=== PATIENT | female | born 1960 | race Caucasian/White ===

== ENCOUNTER → 2021-02-21 | Outpatient (CLI) | payer MEDICARE | LOC: COL.RAD 12:56 | DX: Z12.2 Encounter for screening for malignant neoplasm of respiratory organs (principal); F17.210 Nicotine dependence, cigarettes, uncomplicated ==

== ENCOUNTER → 2021-06-07 | Outpatient (CLI) | payer MEDICARE | LOC: MC.RAD 08:45 | DX: Z12.31 Encounter for screening mammogram for malignant neoplasm of breast (principal) ==

== ENCOUNTER 2021-07-22 21:37 | Emergency (ER) | payer MEDICARE ==
[~2021-07-22] VITALS: Ht 172.7 cm; Wt 73.6 kg
[2021-07-22 21:46] VITALS: TEMP 98
[2021-07-22 22:34] LABS: BASO % 0.3 % (0.0-2.0); EOS # 0.2 K/mm3 (0.0-0.7); EOS % 2.3 % (0.0-4.0); GRAN # 3.7 K/mm3 (1.4-6.5); GRAN % 56.8 % (42.2-75.2); HEMOGLOBIN 10.3 g/dl (12.5-16.0); LYMPH # 1.9 K/mm3 (1.2-3.4); LYMPH % 29.6 % (20.0-51.0); MEAN CELL VOLUME 94 fl (80.0-100.0); MEAN CORPUSCULAR HEMOGLOBIN 31 pg (27-31); MEAN CORPUSCULAR HGB CONC 32 g/dl (33.0-37.0); MEAN PLATELET VOLUME 10.2 fl (7.4-10.4); MONO # 0.7 K/mm3 (0.1-0.6); MONO % 10.7 % (1.7-9.3); PLATELET COUNT 219 K/mm3 (130-400); RED BLOOD COUNT 3.38 M/mm3 (4.10-5.30); REDCELL DISTRIBUTION WIDTH-CV 19.6 % (11.5-14.5)
[2021-07-22 22:35] LABS: HEMATOCRIT 31.9 % (37.0-47.0)
[2021-07-22 22:47] LABS: ALBUMIN 3.4 gm/dL (3.4-4.8); BILIRUBIN,TOTAL 0.2 mg/dL (0.2-1.2); CALCIUM 9.1 mg/dL (8.4-10.2); CREATININE, serum 0.95 mg/dL (0.57-1.11); POTASSIUM 3.6 mmol/L (3.5-4.5); TOTAL PROTEIN 6.6 gm/dL (6.2-8.1)
[2021-07-23 00:36] LABS: COLLECTION METHOD CLEAN CATCH
[2021-07-23 00:42] LABS: PH 5 (5-8); SQUAMOUS EPITHELIAL 0-2 /hpf (0-10); URINE APPEARANCE Clear (CLEAR/HAZY); URINE BACTERIA Rare /hpf (NONE SEEN); URINE BILIRUBIN Negative (NEGATIVE); URINE BLOOD Negative (NEGATIVE); URINE COLOR Yellow (YELLOW); URINE GLUCOSE Negative (NEGATIVE); URINE KETONE Negative (NEGATIVE); URINE LEUKOCYTE ESTERASE Negative (NEGATIVE); URINE NITRATE Negative (NEGATIVE); URINE PROTEIN(semi-quant) Negative (NEGATIVE); URINE RBC 0-2 /hpf (0-2); URINE UROBILINOGEN Negative (NEGATIVE)
[2021-07-23 02:00] VITALS: BP 128/70; PULSE 72
== END 2021-07-23 02:00 | disposition home or self-care (01) ==
LOC: COL.ER 21:37
PROVIDERS: Nurse Practitioner
DX: R41.82 Altered mental status, unspecified (principal); E16.2 Hypoglycemia, unspecified; Z20.822 Contact with and (suspected) exposure to COVID-19; Z28.310 Unvaccinated for COVID-19

== ENCOUNTER → 2021-08-30 | Outpatient (CLI) | payer MEDICARE | LOC: COL.RAD 11:50 | DX: G31.84 Mild cognitive impairment of uncertain or unknown etiology (principal); G43.009 Migraine without aura, not intractable, without status migrainosus; G47.9 Sleep disorder, unspecified; R29.6 Repeated falls; R40.4 Transient alteration of awareness; R25.1 Tremor, unspecified | CPT/HCPCS: A9575 ==

== ENCOUNTER → 2021-09-19 | Outpatient (CLI) | payer MEDICARE | LOC: COL.CARD 08-17 10:00 | DX: G31.84 Mild cognitive impairment of uncertain or unknown etiology (principal); R29.6 Repeated falls; G43.009 Migraine without aura, not intractable, without status migrainosus; R25.1 Tremor, unspecified; G47.9 Sleep disorder, unspecified; R40.4 Transient alteration of awareness ==

== ENCOUNTER 2021-11-22 10:41 | Outpatient (CLI) | payer MEDICARE ==
[~2021-11-22] VITALS: Ht 172.8 cm; Wt 67.0 kg
[2021-11-22 11:11] VITALS: BP 120/84; PULSE 70; TEMP 98.6
[2021-11-22] MEDS ORDERED: EFFEXOR-XR150 MG PO (11:25)
[2021-11-22] MEDS ORDERED: ZYPREXA20 MG PO (11:26)
[2021-11-22] MEDS ORDERED: WELLBUTRIN SR150 M1 PO (11:26)
[2021-11-22] MEDS ORDERED: LUNESTA3 MG PO (11:26)
[2021-11-22] MEDS ORDERED: DESYREL 100MG100 MG PO (11:27)
[2021-11-22 12:50] VITALS: BP 127/79; PULSE 73
--- NOTE | 2021-11-22 12:50 | NUR ---
pt returned via w/c to eu 9, VSS, hob elevated, reported she felt a "little shaky, and light headed at the end of test" pt transferred self to bed, Dr Milner into see pt
[2021-11-22] MEDS ORDERED: FLORINEF ACETA0.1 MG PO (13:02)
[2021-11-22 13:10] VITALS: BP 121/83; PULSE 82
--- NOTE | 2021-11-22 13:30 | NUR ---
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 REVIEWED DISCHARGE INST. WITH PT AND NEW MEDCIATION ORDERED TO CERTIFIED REAL ESTATE APPRAISER WITH INFORMATION GIVEN TO PT. PT UP AND DRESSED AND CALLED FOR RIDE, DISCHARGED AT 1340 VIA W/C TO CAR
== END 2021-11-22 13:40 | disposition home or self-care (01) ==
LOC: COL.CAR 10:41
DX: R42 Dizziness and giddiness (principal); F17.210 Nicotine dependence, cigarettes, uncomplicated

== ENCOUNTER → 2022-07-04 | Outpatient (CLI) | payer MEDICARE ==
[~2022-07-04] MED LIST: DESYREL 100MG100 MG PO; EFFEXOR-XR150 MG PO; FLORINEF ACETA0.1 MG PO; LUNESTA3 MG PO; WELLBUTRIN SR150 M1 PO; ZYPREXA20 MG PO
== END ==
LOC: MC.RAD 14:32
DX: Z12.31 Encounter for screening mammogram for malignant neoplasm of breast (principal)